=== PATIENT | male | born 1935 | race Caucasian/White ===

== ENCOUNTER 2024-03-25 20:53 | Emergency (ER) | payer MEDICARE, BC, SELFPAY ==
[2024-03-25 20:56] VITALS: BP 132/71
--- NOTE | 2024-03-25 21:09 | ED.GENMED ---
History of Present Illness
General
Chief Complaint: Overdose Unintentional
Time Seen by Provider: 03/25/24 21:09
Travel History
Have you had any contact with someone who has COVID-19?: No
Do you have any symptoms of coronavirus? Fever > 100 degrees, chills, cough, shortness of breath, sore throat, loss of taste or smell, muscle aches, or headache?: No
History of Present Illness
History of Present Illness:
HPI: The patient presents with an accidental overdose. He has no symptoms. He took this morning meds along with tomorrow morning's med 1 hour apart at around 9 AM. He then took his evening medications.
EXAM:
GENERAL: Well appearing in no distress
HEENT: Moist oral mucosa
CARDIOVASCULAR: No murmurs, normal heart rate, regular rhythm, No chest wall tenderness, device noted left anterior chest wall
PULMONARY: No respiratory distress, breath sounds are clear and equal
ABDOMEN: Soft with no peritoneal signs, no tenderness
NEUROLOGIC: Excellent strength all extremities, no coordination deficits
PSYCHIATRIC: Appropriate mental status, normal insight and judgement
EXTREMITIES: Nontender, no edema, moves all extremities equally
SKIN: No rash, no lesions
TIME OF INITIAL ENCOUNTER:
NUMBER AND COMPLEXITY OF PROBLEMS ADDRESSED AT THE ENCOUNTER
� Chronic conditions affecting care: CHF, cardiomyopathy, CAD, AICD, high blood pressure, hyperlipidemia
� Acute Exacerbation and/or Progression of Chronic Illness: This is an acute problem
� Differential Diagnosis includes: Medication overuse, not currently bradycardic nor hypotensive
AMOUNT AND/OR COMPLEXITY OF DATA TO BE REVIEWED AND ANALYZED
� I performed an independent evaluation of and my interpretation is:
EKG: AV pacing noted ventricular rate of 70, no significant change from 08/03/2023
CT:
X-rays:
Laboratory Studies: Glucose 146
Other:
� Review of other/old records: The patient was admitted with flash pulmonary edema in 2022 requiring intubation
� Clinical information was obtained by an independent historian: I spoke to daughter at bedside
� Prescriptions/Medications Considered but not given:
� Further testing considered but not performed:
RISK OF COMPLICATIONS AND/OR MORBIDITY OR MORTALITY OF PATIENT MANAGEMENT
� Social determinants of health affecting care: Lives at home
� Discussion with other providers:
� Escalation of care including admission/observation vs risk of discharge considered: The patient has no symptoms. He did take tomorrow morning's meds along with taking this morning's meds and also took this evening's meds. His
blood sugar is normal. He already has a pacemaker which should provide protection. He is on a beta-amparo (carvedilol 12.5 mg twice daily, Entresto twice daily, Lasix and sotalol). I reassessed patient at 10 PM, the patient's blood pressure
remains slightly hypertensive. He has no symptoms.
Past History
Past History
ED Past Medical History: Arrthythmia (Ventricular tachycardia), CAD, HTN, Hypercholesterolemia and [place]
ED Past Surgical History: Cardiac (Pacer/Defib, Stent X 3) and Other (Aortic stent)
Social History
Tobacco: Former smoker
Alcohol: None
Drug: None
Personal: Other
Living: alone
Employment: Retired
Family History
Family History: Other (Noncontributory)
Phy Exam
Physical Exam
Physical Exam:
See HPI
Course
Orders/Labs/Results
Orders:
Orders
03/25/24 21:03
ECG [Electrocardiogram (*1)] Urgent
Reason for Study: Other
Other Reason for Exam: extra dose of medication taken
EKG- Treatment ONCE
03/25/24 21:19
Bedside Glucose- Treatment ONCE
Abnormal Lab Results
03/25/24
21:21
POC Glucose 146 H mg/dl
(70-99)
Vital Signs
Initial and Last Documented VS:
Initial Vital Signs
Temp Pulse Resp BP Pulse Ox
99.2 F 70 18 132/71 97
03/25/24 20:56 03/25/24 20:56 03/25/24 20:56 03/25/24 20:56 03/25/24 20:56
Last Documented Vital Signs
Temp Pulse Resp BP Pulse Ox
99.2 F 70 18 143/71 99
03/25/24 20:56 03/25/24 21:18 03/25/24 21:18 03/25/24 21:18 03/25/24 21:18
*Critical Care Note
Total Time (30-74mins, 75-104mins- exclusive of procedures): Not Applicable
ED Attending Note
-
Portions of this chart may have been created with voice recognition software.� Occasional wrong word or��sound alike� substitutions may have occurred due to the inherent limitations of voice recognition software.
Discharge Plan
Departure
Patient Disposition: Home (Routine Discharge)
Date of Disposition: 03/25/24
Time of Disposition: 21:59
Patient with high blood pressure during this ER visit?: Yes
Discharge Problem:
Accidental medication overdose
Prescriptions:
No Action
brimonidine 0.2 % Drops
1 drp RIGHT EYE TID
Jardiance 25 mg Tablet
25 mg PO DAILY
Patient Comments:
03/25/2024, took double morning dose today.
atorvastatin [Lipitor] 20 mg tablet
20 mg PO DAILY@1999
trazodone 50 mg tablet
25 mg PO DAILY@1999
sotalol 120 mg tablet
60 mg PO BID
Patient Comments:
03/25/2024, took double morning dose today.
pantoprazole 40 mg tablet,delayed release (DR/EC)
40 mg PO DAILY@1999
docusate sodium 100 mg capsule
100 mg PO DAILY
Patient Comments:
03/25/2024, took double morning dose today.
Eliquis 2.5 mg tablet
2.5 mg PO Q12H
Patient Comments:
03/25/2024, took double morning dose today.
furosemide 40 mg Tablet
40 mg PO DAILY Qty: 30 0RF
Patient Comments:
03/25/2024, took double morning dose today.
latanoprost 0.005 % Drops
1 drp BOTH EYES HS Qty: 2.5 0RF
aspirin 81 MG tablet,delayed release (DR/EC)
81 mg PO DAILY Qty: 30 0RF
Patient Comments:
03/25/2024, took double morning dose today.
Entresto 49-51 mg Tablet
1 tab PO BID 30 Days Qty: 60 0RF
Patient Comments:
03/25/2024, took double morning dose today.
carvedilol 12.5 mg Tablet
12.5 mg PO BID Qty: 60 0RF
Patient Comments:
03/25/2024, took double morning dose today.
Activity Restrictions/Additional Instructions:
Your blood pressures and heart rate have been normal here. Your pacemaker is working appropriately. Your glucose is 146. Return here if worse.
Interventions
Interventions:
*Risk Screen - Suicide Last Done: 03/25/24 20:58
*General Assessment Last Done: 03/25/24 20:58
*Neglect/Abuse Screening Last Done: 03/25/24 20:58
ED- Fall Risk Assessment Last Done: 03/25/24 21:23
ED- Cardiac Assessment Last Done: 03/25/24 21:23
ED- Neurological Assessment Last Done: 03/25/24 21:23
ED-Psychological Assessment Last Done: 03/25/24 21:23
ED- Pulmonary Assessment Last Done: 03/25/24 21:23
Discharge Date and Time
Print Language: WELSH
[2024-03-25 21:13] VITALS: BP 128/75
[2024-03-25 21:15] VITALS: BMI 23.4
[2024-03-25 21:18] VITALS: BP 143/71
[2024-03-25 21:23] LABS: Glucose - Point of Care 146 mg/dl (70-99)
[2024-03-25 22:00] VITALS: BP 130/65
== END 2024-03-25 22:10 | disposition home or self-care (01) ==
LOC: EMR 20:53
PROVIDERS: EMERGENCY PHYSICIAN Emergency Medicine; FAMILY PHYSICIAN Family Medicine
DX: T44.7X1A Poisoning by beta-adrenoreceptor antagonists, accidental (unintentional), initial encounter (principal); T50.1X1A Poisoning by loop [high-ceiling] diuretics, accidental (unintentional), initial encounter; T50.991A Poisoning by other drugs, medicaments and biological substances, accidental (unintentional), initial encounter; I25.10 Atherosclerotic heart disease of native coronary artery without angina pectoris; I10 Essential (primary) hypertension; E78.00 Pure hypercholesterolemia, unspecified; Z95.810 Presence of automatic (implantable) cardiac defibrillator; Z95.5 Presence of coronary angioplasty implant and graft; Z87.891 Personal history of nicotine dependence; Z79.899 Other long term (current) drug therapy; Z79.82 Long term (current) use of aspirin; Z79.01 Long term (current) use of anticoagulants
CPT/HCPCS: 99283; 82962; 93005

== ENCOUNTER 2024-09-13 21:14 | Emergency (ER) | payer MEDICARE, BC, SELFPAY ==
[2024-09-13 21:19] VITALS: BP 138/78
[2024-09-13 21:42] LABS: % Basophils 0.9 % (0-2); % Eosinophils 11.1 % (0-6); % Immature Granulocytes 0.4 % (0-0.5); % Lymphocytes 15.8 % (20.5-51.1); % Monocytes 14.3 % (1.7-9.3); % Neutrophils 57.5 % (42.2-75.2); Absolute Eosinophils 0.5 10^3/uL (0-0.7); Absolute Lymphocytes 0.7 10^3/uL (1.2-3.4); Absolute Monocytes 0.7 10^3/uL (0.1-0.6); Absolute Neutrophils 2.7 10^3/uL (1.4-6.5); Hematocrit 44.4 % (39.0-52.0); Hemoglobin 13.8 g/dL (13.0-18.0); Mean Corp Hgb Conc. 31.1 g/dL (33.0-37.0); Mean Corpuscular Hgb 29.2 pg (27.0-31.0); Mean Corpuscular Volume 93.9 fL (80.0-94.0); Mean Platelet Volume 9.7 fL (7.4-10.4); Nucleated Red Blood Cells % 0 % (-); Platelet Count 201 10^3/uL (130-400); Red Blood Cell Count 4.73 10^6/uL (4.70-6.10); Red Cell Dist. Width 15.9 % (11.5-14.5); White Blood Cell Count 4.7 10^3/uL (4.8-10.8)
[2024-09-13 22:02] LABS: ALT (SGPT) 23 U/L (0-50); AST (SGOT) 25 U/L (17-59); Albumin 3.4 g/dl (3.5-5.0); Alkaline Phosphatase 127 U/L (38-126); Blood Urea Nitrogen 25 mg/dl (9-20); Calcium 7.8 mg/dl (8.4-10.2); Carbon Dioxide 26 mmol/L (22-30); Chloride 104 mmol/L (98-107); Glucose 128 mg/dl (70-99); Potassium 3.8 mmol/L (3.5-5.1); Sodium 140 mmol/L (135-145); Total Bilirubin 0.7 mg/dl (0.2-1.3); Total Protein 5.7 g/dl (6.3-8.2); eGFR 48.34
[2024-09-13 22:19] VITALS: BMI 21.8
[2024-09-13 22:22] VITALS: BP 117/63
[2024-09-13 22:25] LABS: NT-proBNP 13300 pg/ml; Troponin I 0.015 ng/ml
--- NOTE | 2024-09-13 22:33 | EDRN ---
Pt offers no complaints and says he does not know why he is here. Family report pt has had a week of lethargy and today had a pulse ox of 88% on room air while sitting. Daughter says she thinks pt is sob and he has swelling in his R ankle and L
arm. Pt denies cp, sob, abd pain, n/v, fever/chills/cough.
--- NOTE | 2024-09-13 22:42 | ED.GENMED ---
History of Present Illness
General
Chief Complaint: Breathing Problem
Time Seen by Provider: 09/13/24 21:56
History of Present Illness
History of Present Illness:
89-year-old male presents to the emergency department for evaluation of dyspnea on exertion. He was apparently noted to be dyspneic while ambulating by his health care recruiter earlier in the day and had a resting oxygen saturation of 88%. Patient denies
this and states he feels well. He does note that he has felt intermittently weird for several days. Denies any fevers, chest pain, nausea, or vomiting.
Past History
Past History
ED Past Medical History: Arrthythmia (Ventricular tachycardia), CAD, HTN, Hypercholesterolemia and [place]
ED Past Surgical History: Cardiac (Pacer/Defib, Stent X 3) and Other (Aortic stent)
Social History
Tobacco: Former smoker
Alcohol: None
Drug: None
Personal: Other
Living: alone
Employment: Retired
Family History
Family History: Other (Noncontributory)
Review of Systems
Review of Systems
Allergies reviewed?: Yes
All Other Systems: ROS reviewed and negative except as documented in HPI and ROS
Phy Exam
Physical Exam
Physical Exam:
GEN: Well appearing, NAD, WDWN
HEENT: Oral mucosa moist, no scleral icterus
Cardiac: Regular rate and rhythm, no murmur
Lung: No respiratory distress, no tachypnea, lungs globally clear to auscultation
MSK: No gross deformity or injuries, 1+ pitting edema BLE
Skin: Good color, no pallor or jaundice, no rashes
Neuro: AO x3, moves all extremities freely
Psych: Calm, cooperative
Scores
Heart Failure Risk
Heart Failure Risk Score: Not Applicable
Course
Orders/Labs/Results
Orders:
Orders
09/13/24 21:27
Electrocardiogram (*1) Urgent
Reason for Study: Other
Other Reason for Exam: Respiratory Distress
Cardiac Monitoring- Treatment ONCE
EKG- Treatment ONCE
CR Chest - 2 Views Urgent
Comment:
Reason For Exam: respiratory distress
O2 Therapy [RESP] Urgent
Titrate/Wean O2 to maintain O2 sat greater than (%): 93
Special Instructions: TO MAINTAIN CONTINUOUS O2 SATS >/= 93%
Pulse Ox/cont/shift [RESP] Urgent
Quantity: 1
Special Instructions: continuous pulse ox
09/13/24 21:36
Complete Blood Count/With Diff Urgent
Comprehensive Metabolic Panel Urgent
NT-proBNP Urgent
Troponin I Urgent
09/13/24 23:21
Urinalysis Reflex To Culture Urgent
Date Specimen was Collected: 09/13/24
Time Specimen was Collected: 23:08
Abnormal Lab Results
09/13/24 09/13/24
21:36 23:21
WBC 4.7 L 10^3/uL
(4.8-10.8)
MCHC 31.1 L g/dL
(33.0-37.0)
RDW 15.9 H %
(11.5-14.5)
Absolute Lymphs (auto) 0.7 L 10^3/uL
(1.2-3.4)
Absolute Monos (auto) 0.7 H 10^3/uL
(0.1-0.6)
Lymphocytes % 15.8 L %
(20.5-51.1)
Monocytes % 14.3 H %
(1.7-9.3)
Eosinophils % 11.1 H %
(0-6)
BUN 25 H mg/dl
(9-20)
Creatinine 1.4 H mg/dL
(0.7-1.3)
Glucose 128 H mg/dl
(70-99)
Calcium 7.8 L mg/dl
(8.4-10.2)
Alkaline Phosphatase 127 H U/L
(38-126)
Total Protein 5.7 L g/dl
(6.3-8.2)
Albumin 3.4 L g/dl
(3.5-5.0)
Urine Bilirubin 2+ A
(Negative)
Urine Glucose 3+ A
(Negative)
09/13/24 21:36
09/13/24 21:36
Vital Signs
Initial and Last Documented VS:
Initial Vital Signs
Temp Pulse Resp BP Pulse Ox
97.8 F 70 20 138/78 98
09/13/24 21:19 09/13/24 21:19 09/13/24 21:19 09/13/24 21:19 09/13/24 21:19
Last Documented Vital Signs
Temp Pulse Resp BP Pulse Ox
97.8 F 70 19 141/79 98
09/13/24 21:19 09/13/24 23:59 09/13/24 23:59 09/13/24 23:59 09/13/24 23:59
MDM/Problems Addressed
MDM/Problems Addressed:
Does not appear to be acutely short of breath and is able to ambulate in the ED without hypoxia. No clinical findings compatible with acute CHF, lungs clear on exam and by imaging. Device interrogation showed no evidence of cardiovascular events
within the past 48 to 72 hours. Discharged in stable condition
*Critical Care Note
Total Time (30-74mins, 75-104mins- exclusive of procedures): Not Applicable
ED Attending Note
-
Portions of this chart may have been created with voice recognition software.� Occasional wrong word or��sound alike� substitutions may have occurred due to the inherent limitations of voice recognition software.
Discharge Plan
Departure
Patient Disposition: Home (Routine Discharge)
Date of Disposition: 09/13/24
Time of Disposition: 23:44
Patient with high blood pressure during this ER visit?: No
Discharge Problem:
Dyspnea on exertion
Instructions: Shortness of Breath (Dyspnea) (DC)
Prescriptions:
No Action
brimonidine 0.2 % Drops
1 drp RIGHT EYE TID
Jardiance 25 mg Tablet
25 mg PO DAILY
Patient Comments:
03/25/2024, took double morning dose today.
atorvastatin [Lipitor] 20 mg tablet
20 mg PO DAILY@1999
trazodone 50 mg tablet
25 mg PO DAILY@1999
sotalol 120 mg tablet
60 mg PO BID
Patient Comments:
03/25/2024, took double morning dose today.
pantoprazole 40 mg tablet,delayed release (DR/EC)
40 mg PO DAILY@1999
docusate sodium 100 mg capsule
100 mg PO DAILY
Patient Comments:
03/25/2024, took double morning dose today.
Eliquis 2.5 mg tablet
2.5 mg PO Q12H
Patient Comments:
03/25/2024, took double morning dose today.
furosemide 40 mg Tablet
40 mg PO DAILY Qty: 30 0RF
Patient Comments:
03/25/2024, took double morning dose today.
latanoprost 0.005 % Drops
1 drp BOTH EYES HS Qty: 2.5 0RF
aspirin 81 MG tablet,delayed release (DR/EC)
81 mg PO DAILY Qty: 30 0RF
Patient Comments:
03/25/2024, took double morning dose today.
Entresto 49-51 mg Tablet
1 tab PO BID 30 Days Qty: 60 0RF
Patient Comments:
03/25/2024, took double morning dose today.
carvedilol 12.5 mg Tablet
12.5 mg PO BID Qty: 60 0RF
Patient Comments:
03/25/2024, took double morning dose today.
Referrals:
Stan Grant MD [Family Provider] -
Activity Restrictions/Additional Instructions:
Follow up with your post commander within the next week
Interventions
Interventions:
*Risk Screen - Suicide Last Done: 09/13/24 21:19
*General Assessment Last Done: 09/13/24 21:19
*Neglect/Abuse Screening Last Done: 09/13/24 21:19
ED- Fall Risk Assessment Last Done: 09/13/24 21:19
*ED COVID-19 Vaccine History Last Done: 09/13/24 21:19
*Nursing Disposition Last Done: 09/14/24 00:03
ED- Cardiac Assessment Last Done: 09/13/24 22:32
ED- Pulmonary Assessment Last Done: 09/13/24 22:32
Discharge Date and Time
Print Language: ANGUILLAN
[2024-09-13 23:00] VITALS: BP 112/57
--- NOTE | 2024-09-13 23:03 | EDRN ---
Interrogated pacemaker ([employer])
[2024-09-13 23:27] LABS: Urine Albumin Trace (Neg - Trace); Urine Bilirubin 2+ (Negative); Urine Character Clear (Clear); Urine Color Yellow; Urine Glucose 3+ (Negative); Urine Ketone Negative (Negative); Urine Leukocyte Negative (Negative); Urine Nitrite Negative (Negative); Urine Occult Blood Negative (Negative); Urine Specific Gravity 1.015 (<1.030); Urine Urobilinogen Negative (Neg - 1+)
[2024-09-13 23:59] VITALS: BP 141/79
== END 2024-09-14 00:17 | disposition home or self-care (01) ==
LOC: EMR 21:14
PROVIDERS: Physician Assistant; EMERGENCY PHYSICIAN Emergency Medicine; FAMILY PHYSICIAN Family Medicine
DX: R06.09 Other forms of dyspnea (principal); I25.10 Atherosclerotic heart disease of native coronary artery without angina pectoris; I10 Essential (primary) hypertension; E78.00 Pure hypercholesterolemia, unspecified; Z95.5 Presence of coronary angioplasty implant and graft; Z87.891 Personal history of nicotine dependence; Z95.810 Presence of automatic (implantable) cardiac defibrillator
CPT/HCPCS: 99285; 71046; 80053; 81003; 83880; 84484; 85025; 93005

== ENCOUNTER 2024-10-01 13:21 | Emergency (ER) | payer MEDICARE, BC, SELFPAY ==
[2024-10-01 13:26] VITALS: BP 150/75
--- NOTE | 2024-10-01 13:27 | ED.GENMED ---
ED Provider Triage
<ANALILIA Arizmendi - Last Filed: 10/01/24 13:29>
-
Patient seen by provider in Triage?: Seen in Triage
Attestation: A medical screening examination has been initiated by a qualified medical provider. Based on the assessment performed at this time, it has been determined that an emergent medical condition may exist and the patient has been informed
that further medical evaluation and possible additional diagnostic testing may be needed.
HPI: Patient is an 89-year-old male brought by EMS for evaluation. Patient was found on the floor by his daughter. It is on certain how long patient was on the floor and what happened. Patient presents via EMS. He has no complaints. He does not
remember falling.
GENERAL: Alert , in no apparent distress
EYE: No visual abnormalities.
NECK: Trachea midline
ENT: No visible abnormalities.
LUNGS: No acute respiratory distress
NEUROLOGICAL: Alert and oriented
SKIN: dressings in place to b/l forearm No visible changes.
MUSCULOSKELETAL: Moving extremities normally
PSYCH: Normal and appropriate interaction.
This is a medical evaluation conducted in person to initiate diagnostic evaluation and provide initial therapeutics. Please see further documentation by the treating clinician.
History of Present Illness
<ANALILIA Arizmendi - Last Filed: 10/01/24 13:29>
General
Chief Complaint: Fall
Time Seen by Provider: 10/01/24 17:55
<Rolando Quinonez DO - Last Filed: 10/01/24 20:43>
General
Source: patient and family
Exam Limitations: dementia
Nursing documentation reviewed up to this point in time: agreed with
History of Present Illness
History of Present Illness:
Agree with HPI in provider triage
Past History
<ANALILIA Arizmendi - Last Filed: 10/01/24 13:29>
Past History
ED Past Medical History: Arrthythmia (Ventricular tachycardia), CAD, HTN, Hypercholesterolemia and [place]
ED Past Surgical History: Cardiac (Pacer/Defib, Stent X 3) and Other (Aortic stent)
Social History
Tobacco: Former smoker
Alcohol: None
Drug: None
Personal: Other
Living: alone
Employment: Retired
Family History
Family History: Other (Noncontributory)
Review of Systems
<Rolando Quinonez, DO - Last Filed: 10/01/24 20:43>
Review of Systems
Allergies reviewed?: Yes
All Other Systems: Not applicable
Constitutional: Reports no symptoms
EENT: Reports no symptoms
Respiratory: Reports no symptoms
Cardiac: Reports no symptoms
ABD/GI: Reports no symptoms
: Reports no symptoms
Musculoskeletal: Reports no symptoms
Skin: Reports no symptoms
Neurological: Reports no symptoms
Endocrine: Reports no symptoms
Hematologic/Lymphatic: Reports no symptoms
Psychiatric: Reports no symptoms
Phy Exam
<Rolando Quinonez, DO - Last Filed: 10/01/24 20:43>
Physical Exam
Physical Exam:
Physical Exam
General: no apparent distress, not acutely ill
Neck: supple. no meningeal signs. normal posterior pharynx
Heart: s1/s2 regular rate and rhythm, no murmur. equal radial
pulses.
HEENT: Pupils equal round reactive to light, EOMI
Lungs: no acute respiratory distress. clear bilaterally
Abdomen: normal bowel sounds. not tender. no CVAT
Neuro: alert and oriented to person and place. no focal neurological deficits cranial nerves II through XII intact
Skin: no rash, skin tear right lateral knee
Psychiatric: well kept. interactive and cooperative
Extremities: no edema. no calf tenderness. negative homans. good distal pulses
Course
<ANALILIA Arizmendi - Last Filed: 10/01/24 13:29>
Orders/Labs/Results
Orders:
Orders
10/01/24 13:28
CT Cervical Spine W/o Iv Contr Urgent
Comment:
Reason For Exam: trauma
CT Head W/o Iv Contrast Urgent
Comment:
Reason For Exam: trauma
10/01/24 13:29
Electrocardiogram (*1) Stat
Reason for Study: Other
Other Reason for Exam: chest pain
EKG- Treatment ONCE
10/01/24 13:36
Complete Blood Count/With Diff Urgent
Comprehensive Metabolic Panel Urgent
Creatine Phosphokinase Urgent
Comment: ADD ON
10/01/24 18:05
Add On- LAB Urgent
Tests Added?: cpk
Abnormal Lab Results
10/01/24
13:36
RBC 4.68 L 10^6/uL
(4.70-6.10)
RDW 15.6 H %
(11.5-14.5)
Abs Immat Gran (auto) 0.1 H 10^3/uL
(0-0.05)
Absolute Neuts (auto) 7.4 H 10^3/uL
(1.4-6.5)
Absolute Lymphs (auto) 0.5 L 10^3/uL
(1.2-3.4)
Absolute Monos (auto) 1.0 H 10^3/uL
(0.1-0.6)
Immature Gran % 0.8 H %
(0-0.5)
Neutrophils % 81.1 H %
(42.2-75.2)
Lymphocytes % 5.5 L %
(20.5-51.1)
Monocytes % 11.4 H %
(1.7-9.3)
BUN 36 H mg/dl
(9-20)
Creatinine 1.5 H mg/dL
(0.7-1.3)
Glucose 149 H mg/dl
(70-99)
Calcium 8.3 L mg/dl
(8.4-10.2)
Total Bilirubin 1.6 H mg/dl
(0.2-1.3)
Alkaline Phosphatase 165 H U/L
(38-126)
Creatine Kinase 287 H U/L
(55-170)
Total Protein 5.6 L g/dl
(6.3-8.2)
Albumin 3.2 L g/dl
(3.5-5.0)
10/01/24 13:36
10/01/24 13:36
Vital Signs
Initial and Last Documented VS:
Initial Vital Signs
Temp Pulse Resp BP Pulse Ox
98.2 F 70 18 150/75 96
10/01/24 13:26 10/01/24 13:26 10/01/24 13:26 10/01/24 13:26 10/01/24 13:26
Last Documented Vital Signs
Temp Pulse Resp BP Pulse Ox
98.2 F 70 17 130/68 95
10/01/24 13:26 10/01/24 20:30 10/01/24 20:30 10/01/24 20:00 10/01/24 20:15
Rachellt;Rolando Quinonez, DO - Last Filed: 10/01/24 20:43>
Orders/Labs/Results
Orders:
Orders
10/01/24 13:28
CT Cervical Spine W/o Iv Contr Urgent
Comment:
Reason For Exam: trauma
CT Head W/o Iv Contrast Urgent
Comment:
Reason For Exam: trauma
10/01/24 13:29
Electrocardiogram (*1) Stat
Reason for Study: Other
Other Reason for Exam: chest pain
EKG- Treatment ONCE
10/01/24 13:36
Complete Blood Count/With Diff Urgent
Comprehensive Metabolic Panel Urgent
Creatine Phosphokinase Urgent
Comment: ADD ON
10/01/24 18:05
Add On- LAB Urgent
Tests Added?: cpk
Abnormal Lab Results
10/01/24
13:36
RBC 4.68 L 10^6/uL
(4.70-6.10)
RDW 15.6 H %
(11.5-14.5)
Abs Immat Gran (auto) 0.1 H 10^3/uL
(0-0.05)
Absolute Neuts (auto) 7.4 H 10^3/uL
(1.4-6.5)
Absolute Lymphs (auto) 0.5 L 10^3/uL
(1.2-3.4)
Absolute Monos (auto) 1.0 H 10^3/uL
(0.1-0.6)
Immature Gran % 0.8 H %
(0-0.5)
Neutrophils % 81.1 H %
(42.2-75.2)
Lymphocytes % 5.5 L %
(20.5-51.1)
Monocytes % 11.4 H %
(1.7-9.3)
BUN 36 H mg/dl
(9-20)
Creatinine 1.5 H mg/dL
(0.7-1.3)
Glucose 149 H mg/dl
(70-99)
Calcium 8.3 L mg/dl
(8.4-10.2)
Total Bilirubin 1.6 H mg/dl
(0.2-1.3)
Alkaline Phosphatase 165 H U/L
(38-126)
Creatine Kinase 287 H U/L
(55-170)
Total Protein 5.6 L g/dl
(6.3-8.2)
Albumin 3.2 L g/dl
(3.5-5.0)
10/01/24 13:36
10/01/24 13:36
Vital Signs
Initial and Last Documented VS:
Initial Vital Signs
Temp Pulse Resp BP Pulse Ox
98.2 F 70 18 150/75 96
10/01/24 13:26 10/01/24 13:26 10/01/24 13:26 10/01/24 13:26 10/01/24 13:26
Last Documented Vital Signs
Temp Pulse Resp BP Pulse Ox
98.2 F 70 17 130/68 95
10/01/24 13:26 10/01/24 20:30 10/01/24 20:30 10/01/24 20:00 10/01/24 20:15
<Rolando Quinonez, DO - Last Filed: 10/01/24 20:43>
MDM/Problems Addressed
Differential Diagnosis Includes:
Intracranial hemorrhage, rhabdomyolysis, dysrhythmia
MDM/Problems Addressed:
81-year-old male with unwitnessed fall. Unclear downtime. No signs of rhabdomyolysis. No signs of dysrhythmia. EKG consistent with AV dual paced rhythm. Patient stable for discharge. Follow-up with primary care.
Chronic conditions affecting care: CAD, Cardiomyopathy and Arrhythmia
Acute Exacerbation and/or Progression of Chronic Illness: HTN and CAD
<Rolando Quinonez, DO - Last Filed: 10/01/24 20:43>
*Radiology
Radiology exam reviewed: radiology read reviewed (CT head and cervical spine no acute findings)
*Pulse Oximetry
Patient hypoxic: no
*EKG
Interpreted by ED Provider?: Yes
EKG Intrepretation Date: 10/01/24
EKG Intrepretation Time: 13:55
Interpretation: abnormal
Comparison EKG: no changes
Heart Rate: 72
Rate: normal
Rhythm: ventricular paced
[place]: normal axis
Interval: normal interval
QRS Pattern: left bundle branch block
Ischemia: no ischemia
*[place] Interpretation
Rate: normal
Interpretation: abnormal
Heart Rate: 72
Rhythm: av sequential
*Critical Care Note
Total Time (30-74mins, 75-104mins- exclusive of procedures): Not Applicable
Data Reviewed
Review of Other/Old Records Reveals: Labs (Prior calcium 7.8 on 09/13/2024)
Source: records
<Rolando Quinonez DO - Last Filed: 10/01/24 20:43>
Patient Management
Social determinants of health affecting care: Living situation and Strong social support
Escalation/DeEscalation of care consider admission/obs:
Admission considered, but not indicated
ED Attending Note
<ANALILIA Arizmendi - Last Filed: 10/01/24 13:29>
-
Portions of this chart may have been created with voice recognition software.� Occasional wrong word or��sound alike� substitutions may have occurred due to the inherent limitations of voice recognition software.
Discharge Plan
Departure
Patient Disposition: Home (Routine Discharge)
Date of Disposition: 10/01/24
Time of Disposition: 20:36
Patient with high blood pressure during this ER visit?: Yes
Condition: Good
Discharge Problem:
Fall, Abrasion of skin
Instructions: Wound Care (DC), Preventing falls in adults, BLOOD PRESSURE
Prescriptions:
No Action
brimonidine 0.2 % Drops
1 drp RIGHT EYE TID
Jardiance 25 mg Tablet
25 mg PO DAILY
Patient Comments:
03/25/2024, took double morning dose today.
atorvastatin [Lipitor] 20 mg tablet
20 mg PO DAILY@1999
trazodone 50 mg tablet
25 mg PO DAILY@1999
sotalol 120 mg tablet
60 mg PO BID
Patient Comments:
03/25/2024, took double morning dose today.
pantoprazole 40 mg tablet,delayed release (DR/EC)
40 mg PO DAILY@1999
docusate sodium 100 mg capsule
100 mg PO DAILY
Patient Comments:
03/25/2024, took double morning dose today.
Eliquis 2.5 mg tablet
2.5 mg PO Q12H
Patient Comments:
03/25/2024, took double morning dose today.
furosemide 40 mg Tablet
40 mg PO DAILY Qty: 30 0RF
Patient Comments:
03/25/2024, took double morning dose today.
latanoprost 0.005 % Drops
1 drp BOTH EYES HS Qty: 2.5 0RF
aspirin 81 MG tablet,delayed release (DR/EC)
81 mg PO DAILY Qty: 30 0RF
Patient Comments:
03/25/2024, took double morning dose today.
Entresto 49-51 mg Tablet
1 tab PO BID 30 Days Qty: 60 0RF
Patient Comments:
03/25/2024, took double morning dose today.
carvedilol 12.5 mg Tablet
12.5 mg PO BID Qty: 60 0RF
Patient Comments:
03/25/2024, took double morning dose today.
Referrals:
Edison Degroot MD [Non-Admitting Privileges] - Call in 1-3 days for appt
Stan Grant MD [Family Provider] - Call in 1-3 days for appt
Interventions
Interventions:
*Risk Screen - Suicide Last Done: 10/01/24 13:26
*General Assessment Last Done: 10/01/24 13:26
*Neglect/Abuse Screening Last Done: 10/01/24 13:26
*ED COVID-19 Vaccine History Last Done: 10/01/24 13:26
ED-Musculoskeletal Assessment Last Done: 10/01/24 17:41
ED- Neurological Assessment Last Done: 10/01/24 17:41
ED-Skin Assessment Last Done: 10/01/24 17:41
Discharge Date and Time
Print Language: EQUATORIAL GUINEAN
[2024-10-01 13:47] LABS: % Basophils 0.6 % (0-2); % Eosinophils 0.6 % (0-6); % Immature Granulocytes 0.8 % (0-0.5); % Lymphocytes 5.5 % (20.5-51.1); % Monocytes 11.4 % (1.7-9.3); % Neutrophils 81.1 % (42.2-75.2); Absolute Basophils 0.1 10^3/uL (0-0.2); Absolute Eosinophils 0.1 10^3/uL (0-0.7); Absolute Immature Granulocytes 0.1 10^3/uL (0-0.05); Absolute Lymphocytes 0.5 10^3/uL (1.2-3.4); Absolute Neutrophils 7.4 10^3/uL (1.4-6.5); Hematocrit 42.3 % (39.0-52.0); Hemoglobin 14.1 g/dL (13.0-18.0); Mean Corp Hgb Conc. 33.3 g/dL (33.0-37.0); Mean Corpuscular Hgb 30.1 pg (27.0-31.0); Mean Corpuscular Volume 90.4 fL (80.0-94.0); Mean Platelet Volume 9.6 fL (7.4-10.4); Nucleated Red Blood Cells % 0 % (-); Platelet Count 265 10^3/uL (130-400); Red Blood Cell Count 4.68 10^6/uL (4.70-6.10); Red Cell Dist. Width 15.6 % (11.5-14.5); White Blood Cell Count 9.1 10^3/uL (4.8-10.8)
[2024-10-01 14:40] LABS: ALT (SGPT) 31 U/L (0-50); AST (SGOT) 35 U/L (17-59); Albumin 3.2 g/dl (3.5-5.0); Alkaline Phosphatase 165 U/L (38-126); Blood Urea Nitrogen 36 mg/dl (9-20); Calcium 8.3 mg/dl (8.4-10.2); Carbon Dioxide 23 mmol/L (22-30); Chloride 102 mmol/L (98-107); Glucose 149 mg/dl (70-99); Potassium 4.3 mmol/L (3.5-5.1); Sodium 137 mmol/L (135-145); Total Bilirubin 1.6 mg/dl (0.2-1.3); Total Protein 5.6 g/dl (6.3-8.2)
[2024-10-01 15:27] VITALS: BP 141/71
[2024-10-01 17:39] VITALS: BP 116/56
[2024-10-01 18:00] VITALS: BP 118/66
[2024-10-01 18:36] LABS: Creatine Phosphokinase 287 U/L (55-170)
[2024-10-01 19:00] VITALS: BP 136/71
[2024-10-01 20:00] VITALS: BP 130/68
== END 2024-10-01 21:02 | disposition home or self-care (01) ==
LOC: EMR 13:21
PROVIDERS: Nurse Practitioner; EMERGENCY PHYSICIAN Emergency Medicine; FAMILY PHYSICIAN Family Medicine
DX: S80.211A Abrasion, right knee, initial encounter (principal); W19.XXXA Unspecified fall, initial encounter; E78.00 Pure hypercholesterolemia, unspecified; I10 Essential (primary) hypertension; I25.10 Atherosclerotic heart disease of native coronary artery without angina pectoris; F03.90 Unspecified dementia, unspecified severity, without behavioral disturbance, psychotic disturbance, mood disturbance, and anxiety; Z87.891 Personal history of nicotine dependence; Z95.5 Presence of coronary angioplasty implant and graft
CPT/HCPCS: 99284; 70450; 72125; 80053; 82550; 85025; 93005